=== PATIENT | male | born 1965 | race African-American/Black ===

== ENCOUNTER → 2019-02-23 | Outpatient (CLI) | payer BC, OTHER ==
[~2019-02-23] VITALS: Ht 177.8 cm; Wt 117.9 kg
[~2019-02-23] MED LIST: COZAAR 50 MG TA50 MG PO; LASIX 40 MG TAB40 MG PO; OMEPRAZOLE40 MG PO; ROSUVASTATIN CA10 MG PO; SPIRONOLACTONE25 MG PO; TRULICITY0.75 MG/0. SUBQ
[2019-02-23 10:19] VITALS: BP 136/79
[2019-02-23 10:24] LABS: HEMATOCRIT 44.3 % (42.0-52.0); HEMOGLOBIN 14.4 gm/dL (14.0-18.0); MCH 26.6 pg (26.0-34.0); MCHC 32.5 g/dL (28.0-37.0); MCV 81.8 fL (80.0-100.0); RBC 5.41 mil/uL (4.50-6.00); RDW 14.6 % (10.5-14.5); WBC 6.6 thou/uL (4.0-11.0)
[2019-02-23 10:34] LABS: CALCIUM 9.4 mg/dL (8.5-10.1); CREATININE 1.6 mg/dL (0.7-1.3); POTASSIUM 4.1 mmol/L (3.5-5.1); PROTIME 9.7 Seconds (9.3-11.4)
--- NOTE | 2019-02-24 09:39 | EKG ---
[address] [address] ELECTROCARDIOGRAM REPORT Name: KAYDEN WALLACE Room #: REG SARAH Ruiz#: [id number] Admission: 02/23/19 Attend Phys: Alexi Forte Discharge: Date of : 63 Report #: [id number] THIS REPORT FOR: //name// [facility] Test Date: 2019-02-23 Test Time: 10:22:13 Pat Name: KAYDEN WALLACE Department: Room: Gender: Home Stager: Gage GONSALEZ : 1965 Requested By: Alexi Forte Order Number: [id number] MD: James Byrnes Measurements Intervals [place] Rate: 86 P: 59 PA: 166 QRS: 26 QRSD: 96 T: QT: 370 QTc: 443 Interpretive Statements Sinus rhythm Nonspecific T wave abnormality No previous ECG available for comparison Electronically Signed On 02-24-2019 9:38:53 [employer]PERVIS[employer] by James Byrnes [email or web address] <ELECTRONICALLY SIGNED> By: James Byrnes MD, [facility] 02/24/19 0938 1022 1022 James Byrnes MD, FACC /EPI
--- NOTE | 2019-03-13 09:37 | CATHLAB ---
[facility] [address] [place] [address] INVASIVE PROCEDURE REPORT Name: KAYDEN WALLACE Room #: REG Joseph#: [id number] Admission: 02/23/19 Attend Phys: Alexi Sanabria Discharge: Date of : 63 Report #: [id number] THIS REPORT FOR: //name// APPROVED REPORT Study performed: 02/23/2019 10:31:47 Patient Details Patient Status: Out-Patient Room #: The patient is a 53 year-old male Event Personnel Alexi Forte Research Test Engine Operator, Susan Jeronimo RN RN, Nora Palmer RN RN, Rosa Padilla RTR, DAISY Armstrong, Xavier Vega Monitor Procedures Performed Left Heart Cath w/or w/o Coronaries [id number] [facility], supervision of conscious sedation Indication Positive stress test, Chest pain Procedure Narrative The Right Groin^ was infiltrated with 1% Lidocaine subcutaneous anesthesia. A PINNACLE 4FR Sheath #[id number] sheath was inserted into the RFA^. Coronary angiography was performed using coronary diagnostic catheters. The right coronary system was accessed and visualized with a JR4 catheter. The left coronary system was accessed and visualized with a JL4 catheter. Left ventricular/Aortic Valve gradient assessed via catheter pullback. Hemostasis was obtained with manual pressure following sheath removal without any complications. The patient tolerated the procedure well and there were no complications associated with the procedure. There was no hematoma. Intraoperative Conscious Sedation Sedation start time: 11.34 Case end Time: 12.04 Versed 2 mg Fluoro Time: 4.12 minutes Dose: DAP 7095.00 cGycm2 820 mGy Contrast Type and Amount: Omnipaque 50 ml [facility] [place] [address] INVASIVE PROCEDURE REPORT Name: KAYDEN WALLACE Room #: REG CL [facility]#: [id number] Admission: 02/23/19 Attend Phys: Alexi Sanabria Discharge: Date of : 63 Report #: [id number] Coronary Angiography The patient's coronary anatomy is left dominant. Diagnostic Cath Left Main Left main is of normal origin and caliber bifurcates left anterior descending left circumflex further. Severely small insignificant ramus that may be a trifurcation instead but no high-grade lesions are noted LAD Small-caliber vessel has diffuse plaquing throughout entire course as it proceeds with the apex. Septal diagonal branches arise in its course and free of high-grade stenosis. The distal third of the LAD there is some narrowing also less than 50% appears to be accentuated by tortuosity in the course of the vessel itself Diagonal 1 Diminutive vessel without significant high-grade lesions of flow-limiting points Circumflex Small to moderate caliber vessel which neurovascularly anginal branch. This marginal branch is less than half a millimeter in size and has a eccentric 75-80% proximal lesion. The vessel then reconstitutes continues on the lateral aspect of the heart without significant stenosis. Left circumflex then continues posteriorly with diffuse disease directed to posterior wall branches of which are free of high-grade lesions. L PDA Diminutive size vessel without high-grade flow-limiting lesions but diffuse disease noted Right Coronary Nondominant vessel of normal origin has a 90+ percent stenosis in its distal third as it reaches the acute margin. The vessel is under half a millimeter in size in its entire course Left Ventriculography Left Ventriculography was not performed. Hemodynamics The aortic pressure is 154/85 mmHg with a mean of 64 mmHg. The left ventricular pressure is 144/10 mmHg with a mean of mmHg. The left ventricular end diastolic pressure is 23 mmHg. There was no gradient across the aortic valve upon pullback. Pullback from the left ventricle to the aorta revealed no gradient across the aortic valve. Conclusion 1. Coronary artery disease with diminutive vessels and high-grade lesions and non-intervened able nondominant RCA, marginal 1 of the circumflex 2. Abnormal hemodynamics elevated left ventricular end-diastolic pressure [facility] [address] [place] [address] INVASIVE PROCEDURE REPORT Name: WALLACEKAYDEN Room #: BOZENA Ruiz#: [id number] Admission: 02/23/19 Attend Phys: Alexi Sanabria Discharge: Date of : 63 Report #: [id number] Recommendations Cardiac Risk Reduction Program Aggressive Medical Therapy <ELECTRONICALLY SIGNED> By: Alexi Forte MD 03/13/19935 5 5 Alexi Forte MD /INF
== END | disposition home or self-care (01) ==
LOC: CATH 09:37
PROVIDERS: Internal Medicine
DX: R07.9 Chest pain, unspecified (principal); I25.10 Atherosclerotic heart disease of native coronary artery without angina pectoris; R94.39 Abnormal result of other cardiovascular function study; I42.9 Cardiomyopathy, unspecified; I11.0 Hypertensive heart disease with heart failure; E11.9 Type 2 diabetes mellitus without complications; I50.9 Heart failure, unspecified; Z98.890 Other specified postprocedural states; Z79.899 Other long term (current) drug therapy; Z88.8 Allergy status to other drugs, medicaments and biological substances

== ENCOUNTER → 2019-06-11 | Outpatient (CLI) | payer BC, OTHER | LOC: SJCVCIMAG 11:47 | DX: R10.30 Lower abdominal pain, unspecified (principal); R19.09 Other intra-abdominal and pelvic swelling, mass and lump; E78.5 Hyperlipidemia, unspecified; I42.8 Other cardiomyopathies ==

== ENCOUNTER → 2019-08-22 | Outpatient (CLI) | payer BC, OTHER | LOC: SJCVCIMAG 09:00 | PROVIDERS: ATTEND Internal Medicine | DX: I11.9 Hypertensive heart disease without heart failure (principal); E13.69 Other specified diabetes mellitus with other specified complication; I42.9 Cardiomyopathy, unspecified; I42.0 Dilated cardiomyopathy; R06.00 Dyspnea, unspecified; I50.20 Unspecified systolic (congestive) heart failure; E78.5 Hyperlipidemia, unspecified ==

== ENCOUNTER → 2021-05-04 | Outpatient (CLI) | payer BC, OTHER | LOC: SJCVCIMAG 16:08 | PROVIDERS: ATTEND Internal Medicine | DX: I42.0 Dilated cardiomyopathy (principal); E78.5 Hyperlipidemia, unspecified ==